=== PATIENT | female | born 1985 | race Caucasian/White ===

== ENCOUNTER → 2017-07-14 | Outpatient (CLI) | payer OTHER ==
--- NOTE | 2017-07-14 16:01 | Diagnostic Imaging Report ---
PROCEDURE: MRI right joint upper extremity without contrast. TECHNIQUE: Multiplanar, multisequence non contrast-enhanced MRI of the right upper extremity was accomplished. INDICATION: Right shoulder pain. There are no prior studies available for comparison. FINDINGS: There are a few small areas of altered signal within the rotator cuff on the T2 fat-saturated coronal series. These findings are more likely due to tendinosis than to a tear. The supraspinatus muscle is not retracted or bunched. There is mild hypertrophy of the acromioclavicular joint, but there does not appear to be any significant narrowing of the outlet for the supraspinatus muscle. The biceps tendon and subscapularis tendon are intact. There is no evidence for a labral tear. There is no sign of a joint effusion. There is no abnormal signal arising from the osseous structures to suggest bone edema or fracture. IMPRESSION: 1. The small areas of altered signal within the rotator cuff are more likely due to tendinosis than to a partial tear. For the most part, the rotator cuff appears to be intact. 2. There is hypertrophy of the acromioclavicular joint, but there is no narrowing of the outlet for the supraspinatus muscle. 3. The labrum appears to be intact. 4. There is no sign of an acute bony injury. Dictated by: Dictated on workstation # [id number]
== END ==
LOC: RAD 13:58
PROVIDERS: ATTEND Nurse Practitioner Family
DX: M89.311 Hypertrophy of bone, right shoulder (principal)
CPT/HCPCS: 73221